=== PATIENT | female | born 1985 | race Caucasian/White ===

== ENCOUNTER 2016-02-23 20:05 | Emergency (ER) | payer OTHER ==
[~2016-02-23] VITALS: Ht 172.7 cm; Wt 81.8 kg
[~2016-02-23 20:05] MED LIST: IBUP800T28 PO; SYN75; TRAM50TA2 PO
[2016-02-23 20:10] VITALS: BP 14/85; PULSE 122; RESP 15; O2SAT 100
[2016-02-23 21:37] LABS: APPEARANCE,URINE CLEAR (CLEAR,HAZY); COLOR,URINE STRAW (YELLOW)
[2016-02-23 21:38] LABS: OCCULT BLOOD,URINE SMALL (NEGATIVE); UROBILINOGEN,URINE NORMAL (NORMAL)
--- NOTE | 2016-02-23 21:43 | ED.REPORT ---
HPI-General Illness Date of Service Feb 23, 2016 ED Provider: Emiliano Rosales MD Pt is a 30 y/o relatively healthy female presenting to the ED due to flu-like symptoms onset 2 days ago. Pt c/o fever, chills, nasal congestion, myalgias. She denies decreased appetite, decreased fluid intake, SOB, nausea, vomiting, wheezing. She is relatively healthy other than a benign liver nodule. Nursing Notes Stated Complaint: FLU SYMPTOMS,FEVER,CHILLS Chief Complaint: FLU/Cold Symptoms Nursing Notes Reviewed: Yes Allergies: Coded Allergies: No Known Allergies (Verified Allergy, Unknown, 02/23/16) acetaminophen (Verified Adverse Reaction, Unknown, LIVER ISSUES, 02/23/16) Scheduled Oseltamivir Phosphate (Tamiflu) 75 Mg Capsule 75 MG PO BID Scheduled PRN Ibuprofen (Ibuprofen) 800 Mg Tablet 800 MG PO TID PRN PRN For Pain Ibuprofen (Ibuprofen) 600 Mg Tablet 600 MG PO QID PRN PRN For Pain Tramadol (Tramadol) 50 Mg Tablet 50 MG PO QID PRN PRN For Pain Miscellaneous Medications Levothyroxine (Synthroid) 75 Mcg Tablet General Time Seen by MD: 21:42 Chief Complaint Other (Flu-like) Hx Obtained From: Patient Arrived By: Walk-in Sudden in Onset?: Yes Onset Occurred: 2 days ago Symptom Duration: Since onset Quality: Aching (diffuse) Severity: Current: Mild Severity: Maximum: Mild Similar Sx Previous: No Past Medical History Past Medical History Benign focal nodule of the liver PCOS Hypothyroidism UTI Past Surgical History [place] Teeth extraction Reports: Tonsillectomy Smoking History Never Smoker Social History Alcohol Use: "Social" Drug Use: Denies drug use Ambulatory Status Independent Review of Systems Full Review of Systems Constitutional: Reports: Chills, Fever, Weakness - generalized Ears / Nose / Throat: Reports: Nasal congestion Respiratory: Denies: Shortness of breath Cardiovascular: Denies: Chest pain GI: Denies: Nausea, Vomiting Musculoskeletal: Reports: Myalgia Complete sys rev & neg: except as marked. Physical Exam Vital Signs Vital Signs Date Time Temp Pulse Resp B/P Pulse Ox O2 Delivery O2 Flow Rate FiO2 02/23/16 22:06 37.1 103 18 132/85 95 Room Air 02/23/16 20:10 38.1 122 15 14/85 100 Room Air Initial VS: Reviewed, Vital signs abnormal Head / Eyes: Atraumatic, Normocephalic, PERRL ENT: Mucous membranes moist, Conjunctiva normal, No scleral icterus Respiratory: Breath sounds normal, Clear to auscultation, No respiratory distress Abdomen / GI: Soft, No distention Extremities: Vascular intact, No swelling Neurologic: Alert, Oriented, Nonfocal Psychiatric: Mood/affect normal, Behavior normal, Normal thought content General/Constitutional: Awake, Alert, No acute distress, Cooperative, Not toxic appearing Neck: Atraumatic, Supple, No meningismus, Full range of motion, No adenopathy Cardiovascular: Regular rhythm, Heart sounds NL, No gallop, No murmurs, No rubs , Cap refill not delayed, Peripheral circulation NL Heart Rate / Rhythm: Positive: Tachycardia (mild) Back: Full range of motion, Painless range of motion Skin: Warm, Dry, Intact Mild flushed skin Interpretation & Diagnostics Lab Results Interpretation Test 02/23/16 21:09 Urine Color Straw (YELLOW) Urine Appearance Clear (CLEAR,HAZY) Urine pH 6.0 (5.0-8.0) Urine Specific [place] 1.010 (1.003-1.035) Urine Protein Negativemg/dL (NEG,TRACE) Urine Glucose (UA) Negativemg/dL (NEGATIVE) Urine Ketones Negativemg/dL (NEGATIVE) Urine Occult Blood Small (NEGATIVE) Urine Nitrite Negative (NEGATIVE) Urine Bilirubin Negative (NEGATIVE) Urine Urobilinogen Normalmg/dL (NORMAL) Urine Leukocyte Esterase Negative (NEGATIVE) Urine RBC 0-2/hpf (0-2) Urine WBC 0-5/hpf (0-5) Urine Epithelial Cells None/hpf (NONE-MOD) Urine Crystals None seen (NONE SEEN) Urine Bacteria Few/hpf (NONE-FEW) Urine Hyaline Casts None/lpf (NONE) Urine Granular Casts None seen (NONE SEEN) Urine Waxy Casts None seen (NONE SEEN) Urine Red Blood Cell Casts None seen (NONE SEEN) Urine White Blood Cell Casts None seen (NONE SEEN) Urine Mucus Present (None Seen) Urine Trichomonas None seen (NONE SEEN) Urine Yeast None (NONE SEEN) Urinalysis Comment None Urine Culture Reflexed Not indicated Lab Results Interpretation: Flu A + Re-Eval/Medical Decision Med Decision/Clinical Course 30-year-old female with cough and flu symptoms. She is positive for influenza A. Offered Tamiflu after discussion of potential risks and benefits. Discharged in stable condition. Time of Eval: 21:44 Re-Evaluation/Progress Note: Pt rechecked. Informed pt of plan for treatment. Pt understands and agrees with plan for treatment. F/U and RTER warnings given. All questions addressed. Counseled Regarding: Diagnosis, Lab results, Need for follow-up, When/why to return to ED Discharge & Departure Primary Impression: Influenza A Disposition: Home Discharge Condition All VS Reviewed: Yes Condition: Stable Patient Instructions: Influenza (ED) Additional Instructions: Drink plenty of fluids and stay well-hydrated. Ibuprofen 600 mg four times daily as needed for muscle aches and fever. Tamiflu twice daily for five days. If you become nauseated with the Tamiflu, stop it. Follow-up with your doctor in the office. Return if any immediate issues. Referrals: Charles Cabrera MD (PCP) [facility] Att[facility] Portions of this note were transcribed by Rosalino Villanueva. I, Dr. Rosales personally performed the history, physical exam and medical decision-making; I reviewed and confirmed the accuracy of the information in the transcribed note. Signed by Lilli Redman, 02/23/16 - [id number] copies to: Charles Cabrera MD, Christopher W MD Feb 23, 2016 21:43 ROSALINO VILLANUEVA Feb 23, 2016 21:48
[2016-02-23] MEDS ORDERED: TAM75UDCAP PO (21:52)
[2016-02-23] MEDS ORDERED: IBUP-1827 PO (21:52)
[2016-02-23 22:06] VITALS: BP 132/85; PULSE 103; RESP 18; O2SAT 95
== END 2016-02-23 22:08 | disposition home or self-care (01) ==
LOC: SED 20:05
DX: J11.1 Influenza due to unidentified influenza virus with other respiratory manifestations (principal); E03.9 Hypothyroidism, unspecified; Z88.6 Allergy status to analgesic agent; Z44.9 Encounter for fitting and adjustment of unspecified external prosthetic device